=== PATIENT | male | born 1990 | race Caucasian/White ===

== ENCOUNTER 2017-03-29 08:15 | Observation (INO) | payer OTHER ==
[~2017-03-29] VITALS: Ht 175.3 cm; Wt 145.2 kg
--- NOTE | 2017-03-29 09:04 | ED GI/GU/ABDOMINAL COMPLAINT ---
History of Present Illness General Chief Complaint: Abdominal Pain/Flank Pain Stated Complaint: ABD PAIN VOMITING X 6HRS Source: patient Exam Limitations: no limitations Vital Signs & Intake/Output Vital Signs & Intake/Output Vital Signs Date Time Temp Pulse Resp B/P B/P Pulse O2 O2 Flow FiO2 Mean Ox Delivery Rate 03/29 1403 97.9 75 20 147/87 98 Room Air 03/29 1220 98.1 68 20 137/80 100 Room Air 03/29 1021 98.1 78 20 152/75 98 Room Air 03/29 0845 Room Air 03/29 0820 97.4 53 20 149/83 97 Room Air Allergies Coded Allergies: amoxicillin (UNKNOWN 03/29/17) Reconcile Medications No Known Home Medications Triage Note: C/O UPPER ABDOMINAL PAIN X 6 HRS. PT STATES HE IS VOMITING YELLOW BILE. PT DENIES DIARRHEA Triage Nurses Notes Reviewed? yes Onset: Abrupt Duration: better, gone now Quality/Severity: aching Severity Numbers: 5 Location: epigastric Radiation: no radiation HPI: Patient is 27-year-old male with past medical history of GERD and hypertension who presents to emergency room with concerns stating that yesterday he had acute onset of epigastric cramping localized abdominal pain and has had 3 episodes of bilious vomiting and for the past 4 hours symptoms have significantly improved of pain and nausea. Patient is compliant with his Nexium. Denies any significant alcohol use or NSAID use. Last bowel movement was 2 days ago no blood no melena Denies any fever chills chest pain shortness of breath or arm pain and jaw pain dysuria hematuria testicular pain or swelling Patient has not tried to challenge by mouth since symptoms began Patient does admit to poor dietary habits where he states that he ate hot dogs yesterday evening Past History Travel History Traveled to [place] past 21 day No Medical History Any Pertinent Medical History? see below for history Cardiovascular: hypertension Surgical History Surgical History: non-contributory Psychosocial History What is your primary language German Tobacco Use: Never used ETOH Use: occasional use Illicit Drug Use: denies illicit drug use Family History Hx Contributory? No Review of Systems Review of Systems Constitutional: Reports: no symptoms. EENTM: Reports: no symptoms. Respiratory: Reports: no symptoms. Cardiovascular: Reports: no symptoms. GI: Reports: see HPI, abdominal pain. Genitourinary: Reports: no symptoms. Musculoskeletal: Reports: no symptoms. Skin: Reports: no symptoms. Neurological/Psychological: Reports: no symptoms. Hematologic/Endocrine: Reports: no symptoms. Immunologic/Allergic: Reports: no symptoms. All Other Systems: Reviewed and Negative Physical Exam Physical Exam General Appearance: no apparent distress, obese Head: atraumatic Eyes: Bilateral: normal appearance, PERRL. Ears, Nose, Throat, Mouth: hearing grossly normal Neck: normal inspection Respiratory: normal breath sounds, chest non-tender, no respiratory distress Cardiovascular: regular rate/rhythm Gastrointestinal: normal bowel sounds, soft, non-tender Extremities: normal range of motion Neurologic/Psych: no motor/sensory deficits Skin: intact, normal color Core Measures ACS in differential dx? No Sepsis Present: No Sepsis Focused Exam Completed? No Progress Differential Diagnosis: AAA, AMI, appendicitis, biliary colic, bowel obstruction , cholecystitis, diverticulitis, epididymitis, esophageal varices, gastritis, hepatitis, hernia, hemorrhoids, ischemic bowel, inflamm bowel dis, orchitis, pancreatitis, prostatitis, peptic ulcer, PUD/GERD, perforated viscous, pyelonephritis, SBO, testicular torsion, ureterolithiasis, urinary retention, urethritis, UTI/pyelo Plan of Care: Orders Procedure Date/time Status Nothing by Mouth 03/30 B Active CBC WITHOUT DIFFERENTIAL 03/30 599 Active BASIC ELECTROLYTES PLUS BUN&CR 03/30 599 Active Clear Liquid Diet 03/29 D Complete Patient Data 03/29 1702 Active Vital Signs 03/29 1702 Active Intake & Output 03/29 1702 Active Code Status 03/29 1702 Active Add-on Test (ER Only) 03/29 1404 Active PARTIAL THROMBOPLASTIN TIME 03/29 1032 Complete PROTHROMBIN TIME 03/29 1032 Complete TYPE & SCREEN (NOT X-MATCH) 03/29 1032 Complete TROPONIN LEVEL 03/29 0935 Complete LIPASE 03/29 0934 Complete DIRECT BILIRUBIN 03/29 0934 Complete COMPREHENSIVE METABOLIC PANEL 03/29 0934 Complete CBC WITHOUT DIFFERENTIAL 03/29 0934 Complete AMYLASE 03/29 0934 Complete EKG 03/29 0822 Active Current Medications Sig/Mary Start time Last Medication Dose Stop Time Status Admin Ceftriaxone Sodium 1,000 MG Q24H 03/30 1500 UNVr (Rocephin) Pantoprazole Sodium 40 MG DAILY 03/30 1000 UNVr (Protonix) Metronidazole 500 MG Q8H 03/30 0100 UNVr (Flagyl) N/A 1 UNIT (No Carrier) Heparin Sodium 5,000 UNIT Q8 03/29 2200 UNVr (Porcine) Morphine Sulfate 4 MG Q4P PRN 03/29 170 UNVr (Morphine) Morphine Sulfate 6 MG Q4P PRN 03/29 1700 UNVr (Morphine) Ondansetron HCl 4 MG Q6P PRN 03/29 1700 UNVr (Zofran) Sodium Chloride 1,000 ML Q8H 03/29 1700 UNVr 03/29 (Normal Saline 0.9%) 1709 Metronidazole 500 MG ONCE ONE 03/29 1645 AC (Flagyl) 03/29 1744 N/A 1 UNIT (No Carrier) Ondansetron HCl 4 MG ONCE ONE 03/29 0945 CAN (Zofran) 03/29 0946 Laboratory Tests 03/29/17 1032: Troponin I < 0.01 03/29/17 1032: Anion Gap 11, Estimated GFR > 60, BUN/Creatinine Ratio 11.4, Glucose 108 H, Calcium 9.6, Total Bilirubin 0.3, Direct Bilirubin 0.3, AST 17, ALT 42, Alkaline Phosphatase 92, Total Protein 6.5, Albumin 3.9, Globulin 2.6, Albumin/Globulin Ratio 1.5, Amylase < 30 L, Lipase 48, PT 11.7, INR 1.12, APTT 30, CBC w Diff MAN DIFF ORDERED, RBC 5.17, MCV 84.7, MCH 28.1, RDW 13.7, MPV 9.5, Gran % 89.7 H, Lymphocytes % 7.4 L, Monocytes % 2.7, Eosinophils % 0, Basophils % 0.2, Absolute Granulocytes 16.5 H, Absolute Lymphocytes 1.4, Absolute Monocytes 0.5, Absolute Eosinophils 0, Absolute Basophils 0, Platelet Estimate VERIFIED BY SMEAR, Normocytic RBCs VERIFIED, Normochromic RBCs VERIFIED, PUBS MCHC 33.3 Patient upon initial examination was resting comfortably at bedside no apparent distress afebrile and has nontender abdomen. After obtaining patient's blood work reexamination there was minimal right upper quadrant abdominal pain on exam in which A limited ultrasound was ordered for evaluation of gallbladder 1410 Patient again resting currently at bedside however patient does have right upper quadrant pain gross cytosis and abnormal gallbladder wall thickening concerns of acute cholecystitis, patient was placed nothing by mouth IV Rocephin was administered surgery was paged Discussed patient with Jesse Angel MD who advised patient to receive CT scan Persistent findings of acute cholecystitis is noted after CT scan resulted however again no observed gallstones is noted Jesse Angel MD was paged discussed patient with Jesse Angel MD who advised patient to be placed in observation and will most likely perform cholecystectomy tomorrow he agrees with Flagyl and Rocephin administration prophylactic antibiotics discussed observation with patient and family members were aware patient again resting currently at bedside Discussed patient with surgical PA who will consult Diagnostic Imaging: Viewed by Me: Ultrasound. Radiology Impression: acute abnormality Initial ED EK BPM,NSR Comments: PATIENT: RIVER PATTEN PRESENT AGE: 27 PATIENT ACCOUNT NO: [id number] : 90 LOCATION: [facility] ORDERING PHYSICIAN: Kale HARRISON SERVICE DATE: 03/29/17 EXAM TYPE: CAT - CT ABD & PELVIS W IV CONTRAST EXAMINATION: CT ABDOMEN AND PELVIS WITH CONTRAST CLINICAL INFORMATION: Right upper quadrant pain. Leukocytosis. Gallbladder shows cholecystitis without stones. COMPARISON: Right upper quadrant ultrasound dated 03/29/2017. TECHNIQUE: Multidetector CT volumetric acquisition of the abdomen and pelvis was performed after the administration of 95 and mL of intravenous Optiray 320. The data set was reformatted in the sagittal and coronal planes and reviewed on an independent workstation. DLP: 1641.32 mGy-cm. FINDINGS: LOWER CHEST: Included lung bases unremarkable. LIVER, GALLBLADDER, BILIARY TREE: Liver normal size and attenuation. No focal cystic or solid mass or intra-or extrahepatic ductal dilatation. Hepatic and portal veins patent. Gallbladder partially distended. As seen on the ultrasound, there is hyperenhancement of the gallbladder wall mucosa with edema of the gallbladder wall. No significant surrounding pericholecystic fat stranding is seen. No calcified gallstones are noted. PANCREAS: The pancreatic tail is atrophic. Mild fatty infiltration of the pancreas is seen. No focal pancreatic mass or peripancreatic stranding or edema is seen. SPLEEN: Normal size and appearance. Splenic vein patent. ADRENAL GLANDS AND KIDNEYS: Adrenal glands normal. Kidneys bilaterally symmetric in size and function. No focal mass, hydronephrosis, nephrolithiasis or perinephric stranding. URETERS AND BLADDER: Ureters decompressed and within normal limits. Bladder partially distended and within normal limits. PELVIC ORGANS: Unremarkable. GASTROINTESTINAL TRACT: A few scattered sigmoid colonic diverticula are seen with no evidence of acute diverticulitis. The small and large bowel loops are decompressed and unremarkable. Appendix and terminal ileum are normal. ABDOMINAL WALL: Approximately 3.4 cm superior to the umbilicus, a tiny 0.6 cm midline ventral wall defect is seen with herniation of fat only into a 4.4 x 2.6 cm hernia sac. LYMPHOVASCULAR STRUCTURES: Abdominal aorta normal in caliber. No periaortic collections. No abdominal or pelvic adenopathy or free fluid collection. BONES: Within normal limits. IMPRESSION: 1. Abnormal appearance of the gallbladder with gallbladder wall edema and mucosal hyperenhancement. Findings are suspicious for acute cholecystitis. No definite calcified gallstones are seen and no surrounding pericholecystic inflammatory changes seen. No biliary obstruction is noted. 2. Small midline supraumbilical ventral wall hernia, containing fat only. 3. Mildly atrophic pancreas. 4. Mild sigmoid colonic diverticulosis. DICTATED BY: Mariama Fuentes MD DATE/TIME DICTATED:03/29/17 / PATIENT: RIVER PATTEN PRESENT AGE: 27 PATIENT ACCOUNT NO: [id number] : 90 LOCATION: [facility] ORDERING PHYSICIAN: Kale HARRISON SERVICE DATE: 03/29/17 EXAM TYPE: US - US-LIMITED ABDOMEN EXAMINATION: US ABDOMEN LIMITED CLINICAL INFORMATION: Right upper quadrant pain. Evaluate gallbladder.. COMPARISON: CT scan of the abdomen and pelvis dated 12/31/2013. TECHNIQUE: Real-time imaging of the right upper quadrant abdominal viscera. FINDINGS: PANCREAS: The pancreatic body and portions of the tail are visualized and appear mildly hyperechoic, a nonspecific finding. Remainder of pancreas is obscured by overlying bowel gas. LIVER: There is diffuse increase in hepatic echogenicity, consistent with hepatic steatosis. The liver demonstrates normal size and contour. No focal lesion or intrahepatic biliary duct dilatation. GALLBLADDER: There is abnormal gallbladder wall thickening and gallbladder wall edema seen. The gallbladder is physiologically distended without evidence of stones, sludge, or polyps. No sonographic Smith's sign is elicited while scanning over the gallbladder. COMMON BILE DUCT: Normal in caliber measuring 0.3 cm in diameter. RIGHT KIDNEY: Normal. No hydronephrosis. No renal calculi or focal parenchymal lesions. The kidney measures 11.9 cm in maximum dimension. FREE FLUID: None. IMPRESSION: 1. Abnormal appearance of the gallbladder with findings suspicious for acute cholecystitis. Close clinical correlation requested. 2. Incomplete view of the pancreas. Visualized portions of pancreas appear hyperechoic, likely due to fatty infiltration. 3. Diffuse hepatic steatosis. 4. Otherwise unremarkable right upper quadrant ultrasound. DICTATED BY: Mariama Fuentes MD DATE/TIME DICTATED:03/29/171341 Departure Departure Disposition: STILL A PATIENT Condition: Guarded Clinical Impression Primary Impression: Cholecystitis Referrals: Lillian Crowley APRN (PCP/Family) Departure Forms: Customer Survey General Discharge Information Prescriptions: Current Visit Scripts No Known Home Medications Observation Note Spoke With: Jeanne DOVER,Jesse Martin. Physician Advisor Notified: VJ DOVER,FADIA [facility] Place Patient In: Non-ED OBS Care Area Rationale for Observation: My rational for observation is as follows [patient requires nothing by mouth after midnight serial exams frequent vital sign evaluation and surgical intervention most likely cholecystectomy performed tomorrow]. Critical Care Note Critical Care Note Critical Care Time: 30-74 min
[2017-03-29 10:53] LABS: ABSOLUTE BASOPHIL COUNT 0 /CUMM (0.0-0.2); ABSOLUTE EOSINOPHIL COUNT 0 /CUMM (0.0-0.7); ABSOLUTE GRANULOCYTE CT 16.5 /CUMM (1.4-6.5); ABSOLUTE LYMPH COUNT 1.4 /CUMM (1.2-3.4); ABSOLUTE MONOCYTE COUNT 0.5 /CUMM (0.10-0.60); BASOPHIL % 0.2 % (0.0-2.0); EOSINOPHIL % 0 % (0-5); GRANULOCYTE % 89.7 % (42.2-75.2); HEMATOCRIT 43.8 % (42-52); MEAN CORPUSCULAR HGB 28.1 PG (27.0-31.0); MEAN CORPUSCULAR HGB CONC 33.3 G/DL (33.0-37.0); MEAN CORPUSCULAR VOLUME 84.7 FL (80.0-94.0); MEAN PLATELET VOLUME 9.5 FL (7.4-10.4); PLATELET COUNT 316 /CUMM (130-400); RBC DISTRIBUTION WIDTH 13.7 % (11.5-14.5); RED BLOOD CELL CT 5.17 /CUMM (4.70-6.10); WHITE BLOOD CELL COUNT 18.4 /CUMM (4.8-10.8)
--- NOTE | 2017-03-29 13:55 | ULTRASOUND REPORT ---
EXAMINATION: US ABDOMEN LIMITED CLINICAL INFORMATION: Right upper quadrant pain. Evaluate gallbladder.. COMPARISON: CT scan of the abdomen and pelvis dated 12/31/2013. TECHNIQUE: Real-time imaging of the right upper quadrant abdominal viscera. FINDINGS: PANCREAS: The pancreatic body and portions of the tail are visualized and appear mildly hyperechoic, a nonspecific finding. Remainder of pancreas is obscured by overlying bowel gas. LIVER: There is diffuse increase in hepatic echogenicity, consistent with hepatic steatosis. The liver demonstrates normal size and contour. No focal lesion or intrahepatic biliary duct dilatation. GALLBLADDER: There is abnormal gallbladder wall thickening and gallbladder wall edema seen. The gallbladder is physiologically distended without evidence of stones, sludge, or polyps. No sonographic Smith's sign is elicited while scanning over the gallbladder. COMMON BILE DUCT: Normal in caliber measuring 0.3 cm in diameter. RIGHT KIDNEY: Normal. No hydronephrosis. No renal calculi or focal parenchymal lesions. The kidney measures 11.9 cm in maximum dimension. FREE FLUID: None. IMPRESSION: 1. Abnormal appearance of the gallbladder with findings suspicious for acute cholecystitis. Close clinical correlation requested. 2. Incomplete view of the pancreas. Visualized portions of pancreas appear hyperechoic, likely due to fatty infiltration. 3. Diffuse hepatic steatosis. 4. Otherwise unremarkable right upper quadrant ultrasound.
[2017-03-29 14:20] LABS: PT 11.7 SEC (9.4-12.5); PTT 30 SEC (25-37)
--- NOTE | 2017-03-29 16:09 | CT SCAN REPORT ---
EXAMINATION: CT ABDOMEN AND PELVIS WITH CONTRAST CLINICAL INFORMATION: Right upper quadrant pain. Leukocytosis. Gallbladder shows cholecystitis without stones. COMPARISON: Right upper quadrant ultrasound dated 03/29/2017. TECHNIQUE: Multidetector CT volumetric acquisition of the abdomen and pelvis was performed after the administration of 95 and mL of intravenous Optiray 320. The data set was reformatted in the sagittal and coronal planes and reviewed on an independent workstation. DLP: 1641.32 mGy-cm. FINDINGS: LOWER CHEST: Included lung bases unremarkable. LIVER, GALLBLADDER, BILIARY TREE: Liver normal size and attenuation. No focal cystic or solid mass or intra-or extrahepatic ductal dilatation. Hepatic and portal veins patent. Gallbladder partially distended. As seen on the ultrasound, there is hyperenhancement of the gallbladder wall mucosa with edema of the gallbladder wall. No significant surrounding pericholecystic fat stranding is seen. No calcified gallstones are noted. PANCREAS: The pancreatic tail is atrophic. Mild fatty infiltration of the pancreas is seen. No focal pancreatic mass or peripancreatic stranding or edema is seen. SPLEEN: Normal size and appearance. Splenic vein patent. ADRENAL GLANDS AND KIDNEYS: Adrenal glands normal. Kidneys bilaterally symmetric in size and function. No focal mass, hydronephrosis, nephrolithiasis or perinephric stranding. URETERS AND BLADDER: Ureters decompressed and within normal limits. Bladder partially distended and within normal limits. PELVIC ORGANS: Unremarkable. GASTROINTESTINAL TRACT: A few scattered sigmoid colonic diverticula are seen with no evidence of acute diverticulitis. The small and large bowel loops are decompressed and unremarkable. Appendix and terminal ileum are normal. ABDOMINAL WALL: Approximately 3.4 cm superior to the umbilicus, a tiny 0.6 cm midline ventral wall defect is seen with herniation of fat only into a 4.4 x 2.6 cm hernia sac. LYMPHOVASCULAR STRUCTURES: Abdominal aorta normal in caliber. No periaortic collections. No abdominal or pelvic adenopathy or free fluid collection. BONES: Within normal limits. IMPRESSION: 1. Abnormal appearance of the gallbladder with gallbladder wall edema and mucosal hyperenhancement. Findings are suspicious for acute cholecystitis. No definite calcified gallstones are seen and no surrounding pericholecystic inflammatory changes seen. No biliary obstruction is noted. 2. Small midline supraumbilical ventral wall hernia, containing fat only. 3. Mildly atrophic pancreas. 4. Mild sigmoid colonic diverticulosis.
--- NOTE | 2017-03-29 20:01 | History & Physical Pre-Op ---
General Information and HPI History of Present Illness: CC: abdominal pain HPI: 27-year-old otherwise healthy nondiabetic nonsmoker on medications for hypertension for the first time ever had some upper abdominal pain after 2 hot dogs last night pain is really not that bad but he vomited twice today came to the ER pain didn't radiate its a little better now actually I was considering sending him home with outpatient workup but the CT scan and the ultrasound showed acute cholecystitis. Patient denies any diarrhea no fevers no particular darkening of urine (ie iced tea) or lightening / loose stools (enriquez), no FHx of gallbladder problems. Otherwise no changes bowel habits, weight or appetite. I' ve reviewed the [facility]. No history of GERD, PUD, bleeding problems, heart disease or issues with anesthesia. Past surgical history none family history no diabetes cancer heart disease Allergies/Medications Allergies: Coded Allergies: amoxicillin (UNKNOWN 03/29/17) Home Med list No Known Home Medications Past History Medical History Cardiovascular: hypertension Surgical History Pertinent Surgical History: non-contributory Past Family/Social History Psychosocial History ETOH Use: occasional use Illicit Drug Use: denies illicit drug use Review of Systems Review of Systems: Constitutional: No fever, sweats or weight loss ENMT: No sore throat Cardiovascular: No chest pain, palpitations or leg swelling Respiratory: No shortness of breath, cough, or sputum or dyspnea on exertion GI: No GERD or bleeding per rectum : No dysuria or hematuria Musculoskeletal: No new muscle weakness, bone or joint pain Skin / Breast: No jaundice, rashes or itching Psychiatric: No history of drug or alcohol abuse no depression or anxiety Hematologic / lymphatic system: No problems with excessive bleeding, bruising, or blood clots Exam & Diagnostic Data Last 24 Hrs of Vital Signs/I&O I reviewed Vital Signs Date Time Temp Pulse Resp B/P B/P Pulse O2 O2 Flow FiO2 Mean Ox Delivery Rate 03/29 1931 98.7 74 18 149/85 99 Room Air 03/29 1814 98.0 70 18 151/74 98 Room Air Room Air 03/29 1403 97.9 75 20 147/87 98 Room Air 03/29 1220 98.1 68 20 137/80 100 Room Air 03/29 1021 98.1 78 20 152/75 98 Room Air 03/29 0845 Room Air 03/29 0820 97.4 53 20 149/83 97 Room Air I reviewed Intake & Output 03/29 1600 03/29 0800 03/29 0000 Intake Total Output Total Balance Patient 320 lb Weight Weight Reported by Patient Measurement Method Physical Exam: Constitutional: pleasant, no acute distress, conversant Eyes: sclera anicteric ENMT: ears and nose atraumatic, moist mucous membranes, good dentition, no lip lesions Neck: Supple, trachea is midline, no cervical or supraclavicular adenopathy and no palpable thyromegaly Cardiovascular: S1, S2, no murmurs, no peripheral edema Respiratory: clear to auscultation with normal respiratory effort and no intercostal retractions GI: abdomen soft, nontender, nondistended, no palpable hepatosplenomegaly Extremities / lymphatics: symmetrically warm, free range of motion no peripheral edema, no cervical, supraclavicular, axillary, or inguinal adenopathy Musculoskeletal: Did not evaluate gait and station, no digital cyanosis, good muscle strength and tone no atrophy, motor grossly 5 out of 5 throughout Skin: no jaundice, no rashes warm, nondiaphoretic, no areas of erythema or induration Psychiatric: mood and affect are appropriate and alert and oriented to person place and time Last 24 Hrs of Labs/Artem: I reviewed Laboratory Tests 03/29/17 1032: Troponin I < 0.01 03/29/17 1032: Anion Gap 11, Estimated GFR > 60, BUN/Creatinine Ratio 11.4, Glucose 108 H, Calcium 9.6, Total Bilirubin 0.3, Direct Bilirubin 0.3, AST 17, ALT 42, Alkaline Phosphatase 92, Total Protein 6.5, Albumin 3.9, Globulin 2.6, Albumin/Globulin Ratio 1.5, Amylase < 30 L, Lipase 48, PT 11.7, INR 1.12, APTT 30, CBC w Diff MAN DIFF ORDERED, RBC 5.17, MCV 84.7, MCH 28.1, RDW 13.7, MPV 9.5, Gran % 89.7 H, Lymphocytes % 7.4 L, Monocytes % 2.7, Eosinophils % 0, Basophils % 0.2, Absolute Granulocytes 16.5 H, Absolute Lymphocytes 1.4, Absolute Monocytes 0.5, Absolute Eosinophils 0, Absolute Basophils 0, Platelet Estimate VERIFIED BY SMEAR, Normocytic RBCs VERIFIED, Normochromic RBCs VERIFIED, PUBS MCHC 33.3 Assessment/Plan Assessment/Plan: I reviewed on PACS myself today's CT scan compared to the one from December 31 3 years ago and also today's ultrasound with needle was wall thickening no obvious stones as consistent with acute cholecystitis, reviewed labs LFTs normal white blood cell count elevated granulocytes elevated My impression is symptomatic gallstones. The story is typical. The current standard of care is removal of the gallbladder laparoscopically, preferably not emergently. Once they become symptomatic, gallstones can lead to complications such as cholecystitis, pancreatitis and cholangitis and rarely others, her story does not have hints of this and she does not have acute cholecystitis. More workup is not needed but we will get a preoperative labs including LFTs. I explained the nature and possibility of retained stones, and rarely, persistent postoperative diarrhea. I john a diagram illustrating how the stones cause problems and how the anatomy and inflammation can make the surgery more difficult, sometimes requiring an open procedure, and rarely to repair a bile duct injury leading to significant morbidity and even mortality. This in our practice is exceedingly rare, but other more common risks were also discussed such as infection, injury to other surrounding structures such as bowel and blood vessels. We also discussed the potential risks, benefits and alternatives to the procedure and surgery in general, issues that included but were not limited to, anesthetic risks hemorrhage requiring transfusion, the risk of transfusion itself, infection, heart attack, stroke, . Plan is for surgery tomorrow morning keeping observation status hopefully can be discharged postop As Ranked By This Provider Problem List: 1. Cholecystitis
[2017-03-29 20:29] VITALS: BP 145/89
[2017-03-30 06:55] VITALS: BP 114/69
--- NOTE | 2017-03-30 07:55 | PN- Student ---
VinicioLorenzo 03/30/17 0741: Subjective Subjective: PRE OPERATIVE NOTE Kolton is an obese 27yo Caucasain male admitted to the floors for acute cholecystitis. He is scheduled to have cholecystecomy today 03/30/2017. He states he is in no acute discomfort since pain medications have been administered but is anxious to leave the hospital. Patient has not eaten or had a bowel movement since arriving to the ER on 03/28/17 however he is passing flatus. Maikel has a significant past medical history of GERD, and tonsillectomy. Only daily medication is Nexium (amount unknown). He currently has IVF and perioperative antibiotics in place. Patient denies: H/A, changes in vision, SOB, chest pain, abd pain, N/V/D, hematuria, paresthesias or syncope. Patient has no complaints at this time. Objective Objective: GENERAL: Patient sitting upright comfortably in bed with pleasant affect. Patient is in no acute distress, A+Ox4. RESP: Good respiratory effort. Lungs CTAB. CARDIO: RRR, no M/R/G appreciated at this time. S1 and S2 audible throughout. ABD: Soft, nontender, nondistended, diminished active bowel sounds audible in all 4 quadrants. No organomegaly, scars or bruits noted. MUSC: 5/5 strength, full ROM throughout. No pain upon palpation NEURO: Sensation intact throughout. Results Results: Laboratory Tests 03/30/17 0720: Sodium Pending, Potassium Pending, Chloride Pending, Carbon Dioxide Pending, Anion Gap Pending, BUN Pending, Creatinine Pending, BUN/Creatinine Ratio Pending , Total Bilirubin Pending, Direct Bilirubin Pending, AST Pending, ALT Pending, Alkaline Phosphatase Pending, Total Protein Pending, Albumin Pending, CBC w Diff Pending, WBC Pending, RBC Pending, Hgb Pending, Hct Pending, MCV Pending, MCH Pending, RDW Pending, Plt Count Pending, MPV Pending, PUBS MCHC Pending 03/29/17 1032: Troponin I < 0.01 03/29/17 1032: Anion Gap 11, Estimated GFR > 60, BUN/Creatinine Ratio 11.4, Glucose 108 H, Calcium 9.6, Total Bilirubin 0.3, Direct Bilirubin 0.3, AST 17, ALT 42, Alkaline Phosphatase 92, Total Protein 6.5, Albumin 3.9, Globulin 2.6, Albumin/Globulin Ratio 1.5, Amylase < 30 L, Lipase 48, PT 11.7, INR 1.12, APTT 30, CBC w Diff MAN DIFF ORDERED, RBC 5.17, MCV 84.7, MCH 28.1, RDW 13.7, MPV 9.5, Gran % 89.7 H, Lymphocytes % 7.4 L, Monocytes % 2.7, Eosinophils % 0, Basophils % 0.2, Absolute Granulocytes 16.5 H, Absolute Lymphocytes 1.4, Absolute Monocytes 0.5, Absolute Eosinophils 0, Absolute Basophils 0, Platelet Estimate VERIFIED BY SMEAR, Normocytic RBCs VERIFIED, Normochromic RBCs VERIFIED, PUBS MCHC 33.3 Assessment/Plan Assessment: Kolton is an obese 27yo male presenting pre op r/t cholecystectomy scheduled for 03/30/2017. Patient is in no acute distress and does not have any pain/questions or complaints at this time. Kolton is anxious to leave the hospital and is slightly agitated that he has been in the ER for an extended period of time. Plan: NPO Continue IVF/perioperative antibiotics. Prep Kolton appropriately for scheduled cholecystecomy. Rafaela Sibley 03/30/17 3912: Assessment/Plan Plan: Agree with above student note. Pt seen this morning as above. Plan for OR today.
[2017-03-30 09:48] LABS: ABSOLUTE BASOPHIL COUNT 0.1 /CUMM (0.0-0.2); ABSOLUTE EOSINOPHIL COUNT 0.1 /CUMM (0.0-0.7); ABSOLUTE GRANULOCYTE CT 6.8 /CUMM (1.4-6.5); ABSOLUTE LYMPH COUNT 2.9 /CUMM (1.2-3.4); ABSOLUTE MONOCYTE COUNT 0.7 /CUMM (0.10-0.60); BASOPHIL % 0.7 % (0.0-2.0); EOSINOPHIL % 1.4 % (0-5); HEMATOCRIT 39.9 % (42-52); MEAN CORPUSCULAR HGB 28.6 PG (27.0-31.0); MEAN CORPUSCULAR HGB CONC 33.5 G/DL (33.0-37.0); MEAN CORPUSCULAR VOLUME 85.4 FL (80.0-94.0); MEAN PLATELET VOLUME 9.6 FL (7.4-10.4); PLATELET COUNT 275 /CUMM (130-400); RBC DISTRIBUTION WIDTH 13.8 % (11.5-14.5); RED BLOOD CELL CT 4.67 /CUMM (4.70-6.10); WHITE BLOOD CELL COUNT 10.6 /CUMM (4.8-10.8)
--- NOTE | 2017-03-30 12:21 | Patient Discharge Instructions ---
Discharge Instructions General Discharge Information You were seen/treated for: acute cholecystitis You had these procedures: lap kari Watch for these problems: temp>101, increased redness or drainage of wounds, increased abdominal pain or nausea No bath, but you may shower: Yes Other wound care: Keep iincision clean and dry, may shower but no bathing or soaking. Special Instructions: Call for any increased shortness of breath, chest pain, palpitations, leg pain Diet Recommended Diet: Regular no added salt Activity Activity Self Limited: Yes Pounds, do NOT lift more than: 10 Acute Coronary Syndrome Inclusion Criteria At DC or during hospital stay patient has or had the following: ACS DIAGNOSIS No Discharge Core Measures Meds if any: Prescribed or Continued at Discharge Meds if any: NOT Prescribed or Continued at Discharge Congestive Heart Failure Inclusion Criteria At DC or during hospital stay patient has or had the following: CHF DIAGNOSIS No Discharge Core Measures Meds if any: Prescribed or Continued at Discharge Meds if any: NOT Prescribed or Continued at Discharge Cerebrovascular accident Inclusion Criteria At DC or during hospital stay patient has or had the following: CVA/TIA Diagnosis No Discharge Core Measures Meds if any: Prescribed or Continued at Discharge Meds if any: NOT Prescribed or Continued at Discharge Venous thromboembolism Inclusion Criteria VTE Diagnosis No VTE Type NONE VTE Confirmed by (Test) NONE Discharge Core Measures - Per Current guidelines, there needs to be overlap - treatment for the first 5 days of Warfarin therapy. - If discharged on Warfarin prior to 5 days of - overlap therapy, the patient will need to be - assessed for post discharge needs including - *Post discharge parental anticoagulation - *Warfarin and/or parental anticoagulation education - *Follow up date to check INR post discharge At least 5 days overlap therapy as Inpatient No Meds if any: Prescribed or Continued at Discharge Note: Overlap Therapy is Warfarin and Anticoagulant Meds if any: NOT Prescribed or Continued at Discharge
[2017-03-30] MEDS ORDERED: PERCOCET 5-3251 EACH PO ×2 (12:23→16:48)
[2017-03-30 13:45] VITALS: BP 142/70
--- NOTE | 2017-03-30 16:54 | PN- General Surgery ---
Subjective Subjective: Post op check Awake, alert tolerating regular diet without pain or nausea Pain is well controlled Objective Vital Signs and I&Os Vital Signs Date Time Temp Pulse Resp B/P B/P Pulse O2 O2 Flow FiO2 Mean Ox Delivery Rate 03/30 654 97.8 57 20 114/69 98 Room Air 03/29 2028 98.5 67 18 145/89 98 Room Air 03/29 1931 98.7 74 18 149/85 99 Room Air 03/29 1813 98.0 70 18 151/74 98 Room Air Room Air Intake & Output 03/30 0000 03/29 1600 03/29 0000 Intake Total 1100 735 Output Total 700 Balance 400 735 Intake, IV 1100 375 Intake, Oral 360 Output, Urine 700 Patient 320 lb 320 lb Weight Weight Reported by Patient Measurement Method Physical Exam: vss, afebrile General: alert and oriented times three Abd: soft, dressings dry Assessment/Plan Assessment/Plan 27yo male s/p lap kari dc home all questions answered percocet transmitted to [facility] fu 10-[address] stinson Core Measures Venous Thromboembolism VTE Risk Factors Surgery No Mechanical VTE Prophylaxis d/t N/A MechProphylax Ordered No VTE Pharm Prophylaxis d/t NA PharmProphylax ordered
--- NOTE | 2017-04-10 11:36 | Operative Report ---
Operative/Inv Procedure Report Surgery Date: 03/30/17 Name of Procedure: Laparoscopic cholecystectomy and primary repair of incarcerated epigastric hernia Pre-Operative Diagnosis: Acute cholecystitis Post-Operative Diagnosis: Same, and incarcerated epigastric hernia Estimated Blood Loss: less than 50ml Surgeon/Supervisor [employer]: Jeanne DOVER,Jesse Sagastume Anesthesia: general endotracheal tube Operative/Procedure Note Note: Patient was positioned supine. After successful induction of general anesthesia, the patient's abdomen was clipped, prepped and draped in the usual sterile fashion. Local anesthetic was injected at the top of the umbilicus and then a curved horizontal incision little over a centimeter was made there with a 15 blade and then deepened. At this point we encountered some preperitoneal fat and a very thick deep subcutaneous layer and eventually you could see that he had an incarcerated low epigastric hernia so we decided to use this as the entry for the trocar but it was not reducible it took some time to define the fascial edges we had to excise some of this incarcerated fat were able to reduce it was a transverse defect over a centimeter and a half wide. Both sides were secured with 0 Vicryl stay sutures and then the thin peritoneal layer was entered, 10 mm Hyde trocar inserted obliquely to the right, and the gas was turned on to 15 mm. After insufflation and repositioning to reverse Trendelenburg, 3 more dissecting 5 mm trochars were placed in the right subcostal area, first lateral, then mid-subcostal, then subxiphoid. The gallbladder fundus was grasped from the lateral port and retracted up over the edge of the liver and then we dissected out the area of the triangle of Calot while retracting the infundibulum caudally / laterally. First the cystic duct was identified, isolated at the neck, clipped 3 times, divided after the second clip and then in similar fashion the cystic artery was identified medially, dissected and divided. Then the gallbladder was from the liver bed using cautery then lowered into an Endobag and removed through the umbilical incision. The instruments and then the trochars were removed letting the gas escape. The fascial defect was reassessed and closed transversely with multiple interrupted 0 Vicryl sutures, 6. No mesh. Then all 4 skin incisions were closed with interrupted subcuticular 4-0 Monocryl , followed by Mastisol Steri-Strips and Bandaids. Estimated blood loss was minimal, lap and sponge counts were correct, wound expectancy was clean- contaminated, IV fluids crystalloid, complications none, patient tolerated the procedure well and was returned to the recovery room in satisfactory condition.
== END 2017-03-30 20:40 ==
LOC: ERH 08:15 → ERHI 17:16 → ENRESERV 18:09 → ENTRNSPT 19:41 → 2NB 19:57 → CMPTRNSPT 20:22 → ENTRNSPT 03-30 13:18 → EDTRNSPT 03-30 13:26 → EDTRNSPTSTS 03-30 13:26 → CMPTRNSPT 03-30 14:28 → ENTRNSPT 03-30 20:17 → CMPTRNSPT 03-30 20:39 → 2NB 03-30 20:40
PROVIDERS: Physician Assistant; Physician Assistant Surgical
DX: K80.10 Calculus of gallbladder with chronic cholecystitis without obstruction (principal); K43.6 Other and unspecified ventral hernia with obstruction, without gangrene; I10 Essential (primary) hypertension; K21.9 Gastro-esophageal reflux disease without esophagitis
CPT/HCPCS: 6040; 36415; 74177; 82436; 88304; 93005; 93010; 96372; 96374; 96375; 96376; C9399; G0378; J0131; J0696; J1644; J1885; J2270; J2405; J3101